=== PATIENT | female | born 1940 | race Caucasian/White ===

== ENCOUNTER → 2017-03-12 | Outpatient (CLI) | payer MEDICARE, BC ==
[2013-11-17 03:49] VITALS: BP 151/76
[~2017-03-12] MED LIST: CONTRAST GIVEN MC PRN; DOXY100C2 PO; FURO-68 PO; IOHEXOL 300 MG/ML 100ML VIAL. IV ONE; IRBE300T3 PO; THYR60TA PO
--- NOTE | 2017-03-12 12:55 | KCIC ---
PQRS Compliance Statement: One or more of the following individualized dose reduction techniques were utilized for this examination: 1. Automated exposure control 2. Adjustment of the mA and/or kV according to patient size 3. Use of iterative reconstruction technique CT ABDOMEN WO/W CONTRAST Clinical Indication: Adrenal nodule on outside CT. History of kidney stones. Comparison: CT abdomen and pelvis without contrast, February 10, 2017, [facility]. TECHNIQUE: Helical CT imaging of the abdomen is performed before and after 100 cc Omnipaque 300 IV contrast using adrenal protocol CT. Postcontrast imaging includes a 15 minute delay. Findings: Left hydronephrosis appears improved. Left lower pole renal cyst is stable. Left lower pole renal calculus is not identified. Right kidney is normal. Atherosclerotic abdominal aorta, no aneurysm. Right adrenal gland is normal. Left adrenal nodule measures 1.5 x 1.9 cm. Attenuation on the precontrast image measures 10 Hounsfield units, postcontrast 46 Hounsfield units, and delay 26 Hounsfield units. The absolute washout percentage is indeterminate and the relative washout percentage is consistent with an adrenal adenoma. Small hiatal hernia. Cardiac size normal. Lung bases essentially clear. Cholecystectomy. There is a cystic lesion in the body of the pancreas measuring 1.6 x 1.2 cm, image 41 of series 3. No peripancreatic inflammation. Pancreatic duct is not dilated. Visualized bowel is unremarkable. No abdominal ascites. No acute bone abnormality. IMPRESSION: 1. Left adrenal nodule is favored to be an adenoma but findings are not definitive. 2. There is a cystic lesion in the body of the pancreas. Considerations include pancreatic pseudocyst, side branch intraductal papillary mucinous neoplasm, or epithelial cyst. 3. Given these 2 findings, recommend follow-up MR abdomen with and without contrast in 6-12 months to assess stability. 4. Left hydronephrosis appears improved. 5. Small hiatal hernia. Electronically signed by: Edilberto Hess MD (03/12/2017 12:52 PM) [id number]
== END | disposition home or self-care (01) ==
LOC: KCIC CT 09:35
PROVIDERS: ATTEND Physician Assistant
DX: E27.8 Other specified disorders of adrenal gland (principal); K44.9 Diaphragmatic hernia without obstruction or gangrene; N13.30 Unspecified hydronephrosis; Z87.442 Personal history of urinary calculi
CPT/HCPCS: 74170; 82565; Q9967

== ENCOUNTER → 2017-12-12 | Outpatient (CLI) | payer MEDICARE ==
[~2017-12-12] MED LIST changes: -CONTRAST GIVEN MC PRN; -DOXY100C2 PO; -FURO-68 PO; +GADOBUTROL 10 MMOL/10 ML VIAL IV; -IOHEXOL 300 MG/ML 100ML VIAL. IV ONE; -IRBE300T3 PO; -THYR60TA PO
[2017-12-12] MEDS: IOHEXOL 300 MG/ML 100ML VIAL. IV (10:52)
[2017-12-13 11:35] LABS: ISTAT CREATININE 0.7 mg/dL (0.6-1.1)
[2017-12-17 08:52] LABS: ISTAT CREATININE 0.7 mg/dL (0.6-1.1)
== END | disposition home or self-care (01) ==
LOC: KCIC MRI 09:31
DX: I10 Essential (primary) hypertension (principal); E27.9 Disorder of adrenal gland, unspecified; K44.9 Diaphragmatic hernia without obstruction or gangrene; K86.9 Disease of pancreas, unspecified
CPT/HCPCS: 74170; 82565; Q9967

== ENCOUNTER → 2019-05-15 | Outpatient (CLI) | payer MEDICARE, BC ==
[2013-11-17 03:49] VITALS: BP 151/76
[~2019-05-15] MED LIST changes: +ALPH200C2 PO; +AMLO5TAB4 PO; +ASTA4CAP PO; +DOXY100C2 PO; +FURO-68 PO; -GADOBUTROL 10 MMOL/10 ML VIAL IV; +IRBE300T3 PO; +MINO100C61 PO; +NAPR220C4 PO; +THYR60TA PO
--- NOTE | 2019-05-16 08:45 | KCIC ---
EXAM: CT CORONARY CALCIUM SCORING. HISTORY: Coronary risk factors. Calcium scoring is requested. Family history of coronary disease. COMPARISON: None. FINDINGS: Limited noncontrast CT of the chest was performed for coronary calcium scoring. Refer to the worksheets for full detail. Coronary calcium scoring is as follows: LMA: 0. This value is spurious, as segmentation combines the left main calcification with the left anterior descending value that follows. LAD: 295.8. LCX: 15.9. RCA: 63.2. PDA: 0. Total: 375.0. The included portions of the chest reveal the following. Bone windows reveal no suspicious lesions. Images of the upper abdomen reveal a moderate hiatal hernia. There are no pathologically enlarged mediastinal lymph nodes. There is no pleural or pericardial effusion. The heart is not enlarged. A 4 mm nodule in the left upper lobe on image one is partially visualized at the superior margin of the [id number]. There is dependent atelectasis. IMPRESSION: 1. Coronary calcium score 375. 2. Moderate hiatal hernia. *One or more of the following individualized dose reduction techniques were utilized for this examination: 1. Automated exposure control. 2. Adjustment of the mA and/or kV according to patient size. 3. Use of iterative reconstruction technique. Electronically signed by: Mau Haney MD (05/16/2019 8:42 AM) [facility]
== END | disposition home or self-care (01) ==
LOC: KCIC CT 10:51
PROVIDERS: ATTEND Family Medicine
DX: E83.52 Hypercalcemia (principal); K44.9 Diaphragmatic hernia without obstruction or gangrene; Z82.49 Family history of ischemic heart disease and other diseases of the circulatory system
CPT/HCPCS: 75571

== ENCOUNTER 2019-07-04 11:55 | Emergency (ER) | payer MEDICARE ==
[~2019-07-04] VITALS: Ht 167.6 cm; Wt 104.3 kg
[2019-07-04] MEDS ORDERED: HYDROmorphone 2 MG/ML VIAL IV ONE (12:15)
--- NOTE | 2019-07-04 12:50 | RAD ---
Three-view left shoulder dated 07/04/2019. COMPARISON: None INDICATION: Pain after injury. FINDINGS: 3 views of left shoulder show anterior dislocation of the humeral head relative to the glenoid. No definite acute fracture. Osseous structures are otherwise intact. There is mild degenerative change of the AC joint. IMPRESSION: Anterior shoulder dislocation. Electronically signed by: Julio Rod MD (07/04/2019 12:47 PM) [facility] [place]
--- NOTE | 2019-07-04 12:52 | RAD ---
Single view pelvis, two-view left hip and 2 views left femur dated 07/04/2019. No comparison available. CLINICAL INDICATION: Pain after injury. FINDINGS: Single AP view pelvis shows normal bony alignment. No displaced fracture. Intact pelvic ring. Mild degenerative change of the bilateral hip joint, bilateral SI joint and pubic symphysis. Spondylotic changes of the lower lumbar spine. 2 views of the left hip show normal bony alignment. No displaced fracture. No periostitis or bone destruction. 2 views left femur show intact humeral shaft. There is mild tricompartmental degenerative change of the knee joint. No periostitis or bone destruction. IMPRESSION: 1. No acute radiographic abnormality. 2. Degenerative changes as described Electronically signed by: Julio Rod MD (07/04/2019 12:49 PM) [facility] [place]
[2019-07-04] MEDS ORDERED: PROPOFOL 20 ML IV ONE (13:00)
--- NOTE | 2019-07-04 13:10 | PHYS DOC ---
Past Medical History Past Medical History: Other Additional Past Medical Histor: lyme disease Past Surgical History: Appendectomy, Cholecystectomy, , Hysterectomy, Tubal ligation Additional Past Surgical Histo: intestinal adhesions Alcohol Use: None Drug Use: None Adult General Chief Complaint Chief Complaint: MECHANICAL FALL HPI HPI is a 78-year-old female who presents with report of severe left shoulder pain after tripping and falling down one stair onto her left shoulder. She also complains of pain in her left thigh. Patient rates her pain to be a 8 out of 10 currently after having received a total of 200 g of fentanyl by EMS. She denies any head injury or loss of consciousness. She states the pain is worsened with any movement of the left shoulder joint.[] Review of Systems Review of Systems Constitutional: Denies fever or chills [] Respiratory: Denies cough or shortness of breath [] Cardiovascular: No additional information not addressed in HPI [] GI: Denies abdominal pain, nausea, vomiting or diarrhea [] Musculoskeletal: Complains of left shoulder pain [] Integument: Denies rash or skin lesions [] Neurologic: Denies headache, focal weakness or sensory changes [] All other systems were reviewed and found to be within normal limits, except as documented in this note. Current Medications Current Medications Current Medications Medications (Trade) Dose Ordered Sig/Claudia Start Time Stop Time Status Last Admin Dose Admin Hydromorphone HCl (Dilaudid) 1 mg 1X ONCE 07/04/19 12:15 07/04/19 12:16 DC 07/04/19 12:18 1 MG Ondansetron HCl (Zofran) 4 mg 1X ONCE 07/04/19 13:30 07/04/19 13:32 DC 07/04/19 13:40 4 MG Propofol 20 ml @ 0 mls/hr 1X ONCE 07/04/19 13:00 07/04/19 13:01 DC Sodium Chloride 1,000 ml @ 1,000 mls/hr 1X ONCE 07/04/19 14:00 07/04/19 14:59 Allergies Allergies Allergies Coded Allergies Type Severity Reaction Last Updated Verified Sulfa (Sulfonamide Antibiotics) Allergy Intermediate Rash 03/12/17 No meperidine Allergy Intermediate Rash 03/12/17 No carbamazepine Allergy Unknown " Makes me crazy" 11/17/13 Yes morphine Allergy Unknown " makes me crazy" 11/17/13 Yes Uncoded Allergies Type Severity Reaction Last Updated Verified METAL Allergy Unknown " looks like a staph infection" 11/17/13 Physical Exam Physical Exam Constitutional: Well developed, well nourished, no acute distress, non-toxic appearance. [] HENT: Normocephalic, atraumatic, bilateral external ears normal, oropharynx moist, no oral exudates, nose normal. [] Eyes: PERRLA, EOMI, conjunctiva normal, no discharge. [] Neck: Normal range of motion, no tenderness, supple. [] Cardiovascular: Regular rate and rhythm[] Lungs & Thorax: Bilateral breath sounds clear to auscultation [] Abdomen: Bowel sounds normal, soft, no tenderness. [] Skin: Warm, dry, no erythema, no rash. [] Extremities: Examination of left shoulder demonstrates deformity with anterior fullness and complete loss of range of motion due to pain area. Left lower extremity demonstrates tenderness to palpation along the anterior lateral thigh. [] Neurologic: Alert and oriented X 3, no focal deficits noted. [] Current Patient Data Vital Signs Vital Signs Date Time Temp Pulse Resp B/P (MAP) Pulse Ox O2 Delivery O2 Flow Rate FiO2 07/04/19 13:48 97.5 82 19 149/79 2.0 97.6 77 15 2.0 97.7 77 15 6.0 6.0 07/04/19 12:18 100 Room Air EKG EKG [] Radiology/Procedures Radiology/Procedures [] Impressions: PROCEDURE: SHOULDER 2+V LEFT Three-view left shoulder dated 07/04/2019. COMPARISON: None INDICATION: Pain after injury. FINDINGS: 3 views of left shoulder show anterior dislocation of the humeral head relative to the glenoid. No definite acute fracture. Osseous structures are otherwise intact. There is mild degenerative change of the AC joint. IMPRESSION: Anterior shoulder dislocation. Electronically signed by: Julio Rod MD (07/04/2019 12:47 PM) [facility] [place] PROCEDURE: HIP LEFT 2V WITH PELVIS Single view pelvis, two-view left hip and 2 views left femur dated 07/04/2019. No comparison available. CLINICAL INDICATION: Pain after injury. FINDINGS: Single AP view pelvis shows normal bony alignment. No displaced fracture. Intact pelvic ring. Mild degenerative change of the bilateral hip joint, bilateral SI joint and pubic symphysis. Spondylotic changes of the lower lumbar spine. 2 views of the left hip show normal bony alignment. No displaced fracture. No periostitis or bone destruction. 2 views left femur show intact humeral shaft. There is mild tricompartmental degenerative change of the knee joint. No periostitis or bone destruction. IMPRESSION: 1. No acute radiographic abnormality. 2. Degenerative changes as described Electronically signed by: Julio Rod MD (07/04/2019 12:49 PM) [facility] [place] DICTATED and SIGNED BY: JULIO ROD MD DATE: 07/04/19 1249 PROCEDURE: SHOULDER LEFT 1V Left shoulder post reduction HISTORY: Anterior shoulder dislocation Single view was taken of the left shoulder. Humerus as been reduced into good position. An acute fracture is not identified. IMPRESSION: 1. Reduction of left shoulder dislocation. Electronically signed by: Robin Arellano MD (07/04/2019 2:15 PM) [facility] [place] Course & Med Decision Making Course & Med Decision Making Pertinent Labs and Imaging studies reviewed. (See chart for details) X-ray Shoulder 3V Interpreted by me: Bones: Left shoulder Joints: Anterior dislocation of the glenohumeral joint Foreign body: None Procedural Sedation: Pre-assessment performed. See preceding complete history and physical for details. Time out performed. See sedation documentation for details. Medication(s): Propofol Complications: No hypoxic or apneic events Recovered without incident. Greater than 15 minutes of face to face time in cluded in sedation and recovery. Shoulder Reduction by me: Anesthesia: Propofol Location: Left shoulder Technique: External rotation, Traction-countertraction Results: Denominational of normal anatomic positioning Compl: Neurovascularly intact post procedure. Sling Assessment: Neurovascularly intact post sling placement with good fit. Post-reduction X-ray Shoulder 1V Interpreted by me: Bones: Left shoulder Joints: Relocation of previously noted dislocation Foreign body: None Dragon Disclaimer Dragon Disclaimer This electronic medical record was generated, in whole or in part, using a voice recognition dictation system. Departure Departure Impression: Primary Impression: Dislocation of left shoulder joint Disposition: 01 HOME, SELF-CARE Condition: STABLE Referrals: ROSSANA MENDOZA (PCP) Patient Instructions: Shoulder Dislocation Scripts Hydrocodone/Apap 5-325 (NORCO 5-325 TABLET) 1 Each Tablet 1-2 EACH PO PRN Q6HRS PRN for PAIN, #15 as needed for pain Prov: DALILA CORTES Jr. DO 07/04/19 Problem Qualifiers Primary Impression: Dislocation of left shoulder joint Encounter type: initial encounter Qualified Codes: S43.005A - Unspecified dislocation of left shoulder joint, initial encounter DALILA CORTES Jr. DO Jul 04, 2019 13:10
[2019-07-04] MEDS ORDERED: ONDANSETRON PF 4 MG/2 ML VIAL. IV ONE ×2 (13:30→15:00)
[2019-07-04 13:48] VITALS: BP 149/79
[2019-07-04] MEDS ORDERED: IV NORMAL SALINE 1000ML BAG 1,000 ML IV ONE (14:00)
--- NOTE | 2019-07-04 14:18 | RAD ---
Left shoulder post reduction HISTORY: Anterior shoulder dislocation Single view was taken of the left shoulder. Humerus as been reduced into good position. An acute fracture is not identified. IMPRESSION: 1. Reduction of left shoulder dislocation. Electronically signed by: Robin Arellano MD (07/04/2019 2:15 PM) [facility]
[2019-07-04] MEDS ORDERED: HYDR-3164 PO (14:24)
[2019-07-04 15:00] VITALS: BP 124/73
[2019-07-04] MEDS ORDERED: ONDA4TAB12 PO (15:02)
== END 2019-07-04 15:39 | disposition home or self-care (01) ==
LOC: ER 11:55
DX: S43.015A Anterior dislocation of left humerus, initial encounter (principal); M79.652 Pain in left thigh; M25.552 Pain in left hip; Z90.49 Acquired absence of other specified parts of digestive tract; Z90.89 Acquired absence of other organs; Z90.710 Acquired absence of both cervix and uterus; Z98.51 Tubal ligation status; Z88.1 Allergy status to other antibiotic agents; Z88.5 Allergy status to narcotic agent; Z88.2 Allergy status to sulfonamides; Z88.8 Allergy status to other drugs, medicaments and biological substances; W10.8XXA Fall (on) (from) other stairs and steps, initial encounter; Y93.89 Activity, other specified; Y92.89 Other specified places as the place of occurrence of the external cause; Y99.8 Other external cause status
CPT/HCPCS: 23650; 73020; 73030; 73502; 73552; 96374; 96376; 99285; J1170; J2405; J2704; J7030